=== PATIENT | female | born 1965 | race African-American/Black ===

== ENCOUNTER 2020-05-26 21:03 | Emergency (ER) | payer OTHER ==
[~2020-05-26] VITALS: Ht 160 cm; Wt 91.3 kg
--- NOTE | 2020-05-26 21:43 | REPVR ---
PROCEDURE INFORMATION: Exam: XR Right Hand Exam date and time: 05/26/2020 9:20 PM Age: 55 years old Clinical indication: Other: Injury; Additional info: Hand caught in soda machine TECHNIQUE: Imaging protocol: XR Right hand. Views: 3 or more views. COMPARISON: No relevant prior studies available. FINDINGS: Bones/joints: Normal. Soft tissues: Soft tissue swelling noted on the dorsum of the hand. IMPRESSION: Soft tissue swelling on the dorsum of the hand with no radiographic evidence of fracture Electronically signed by: Halley Mckinley On 05/26/2020 21:43:35 PM
[2020-05-27] MEDS ORDERED: KETOROLAC TROMETHAMINE 10 MG TAB PO ONE (00:10)
[2020-05-27] MEDS ORDERED: KETO10TAB PO (00:12)
[2020-05-27 01:04] VITALS: BP 128/80
== END 2020-05-27 01:06 | disposition home or self-care (01) ==
LOC: M ED 21:03
DX: S60.221A Contusion of right hand, initial encounter (principal); X58.XXXA Exposure to other specified factors, initial encounter; Y92.89 Other specified places as the place of occurrence of the external cause; Y93.9 Activity, unspecified; Y99.0 Civilian activity done for income or pay